=== PATIENT | female | born 1935 ===

== ENCOUNTER 2017-12-04 01:56 | Emergency (ER) | payer MEDICARE ==
[2017-12-04 02:10] VITALS: O2SAT 98
[2017-12-04 02:50] VITALS: BP 160/71; PULSE 17; RESP 18; TEMP 97.8
[2017-12-04] MEDS ORDERED: Tetanus/Diphtheria Toxoids 0.5 ml Syringe IM ONE ×2 (02:51→02:58)
[2017-12-04] MEDS ORDERED: Bacitracin 500 Units/gm Oint Foilpak UD ONE (03:22)
--- NOTE | 2017-12-04 03:37 | C.PDOC ---
History Of Present Illness 82 y/o female presents to the ED for evaluation of laceration sustained tonight. Patient states she accidentally cut her right lower leg on the sharp metal edge at the base of her bedframe. Denies any weakness or numbness. Tetanus is not up to date. Time Seen by Provider: 12/04/17 02:12 Chief Complaint (Nursing): Abnormal Skin Integrity History Per: Patient History/Exam Limitations: no limitations Onset/Duration Of Symptoms: Hrs Current Symptoms Are (Timing): Still Present Past Medical History Reviewed: Historical Data, Nursing Documentation, Vital Signs Vital Signs: Last Vital Signs Temp 97.8 F 12/04/17 02:04 Pulse 17 L 12/04/17 02:48 Resp 18 12/04/17 02:04 BP 160/71 H 12/04/17 02:04 Pulse Ox 98 12/04/17 03:37 - Medical History PMH: HTN, Hyperthyroidism Denies: Chronic Kidney Disease Surgical History: No Surg Hx Family History: States: No Known Family Hx - Social History Hx Alcohol Use: No Hx Substance Use: No - Immunization History Hx Tetanus Toxoid Vaccination: No Hx Influenza Vaccination: No Hx Pneumococcal Vaccination: No Review Of Systems Skin: Positive for: Lesions (to right lower leg) Neurological: Negative for: Weakness, Numbness Physical Exam - Physical Exam Appears: Non-toxic, No Acute Distress Skin: Normal Color, Warm, Dry Head: Atraumatic, Normacephalic Eye(s): bilateral: Normal Inspection, PERRL, EOMI Neck: Normal ROM Chest: Symmetrical Respiratory: No Accessory Muscle Use Extremity: Normal ROM, Capillary Refill (less than 2 sec), No Deformity, No Swelling, Other (4 cm laceration to the distal aspect of right lower extremity; No foreign body or tendon visualization) Pulses: Left Dorsalis Pedis: Normal, Right Dorsalis Pedis: Normal Neurological/Psych: Oriented x3, Normal Speech, Normal Motor, Normal Sensation, Other (No focal deficits) Gait: Steady ED Course And Treatment O2 Sat by Pulse Oximetry: 98 (RA) Pulse Ox Interpretation: Normal Progress Note: Wound irrigated vigorously with 100cc of saline. Sterilized with betadine, laceration repaired with 7 elena. Bacitractin and dressing applied. Tdap booster given in the ED. Patient counseled regarding wound care and the importance of wound check in 2 days. Laceration - Laceration Repair right lower leg Wound Length (In cm): 4 Description Of Wound: Linear Wound Cleansed With: Betadine, Sterile Saline Wound Examination: Irrigated With Saline, No FB With Wound Exploration, No Tendon Injury With Wound Exploration Wound Closure: Elena (x7) Wound Complexity: Simple Disposition Counseled Patient/Family Regarding: Diagnosis, Need For Followup - Disposition Referrals: Junior Luog MD [Staff Provider] - Disposition: HOME/ ROUTINE Disposition Time: 03:35 Condition: STABLE Additional Instructions: Apply bacitracin ointment Wound care in 2 days Follow wound care instructions Staple removal i 10 days Return to ER if worse Instructions: Laceration Repair With [place] (DC) Forms: [employer] (Filipino) - Clinical Impression Clinical Impression: Laceration of leg - PA / ORGANIZATIONAL DEVELOPMENT MANAGER / Resident Statement MD/DO has reviewed & agrees with the documentation as recorded. - Scribe Statement The provider has reviewed the documentation as recorded by the Scribe (Mercy Varela) All medical record entries made by the Scribe were at my direction and personally dictated by me. I have reviewed the chart and agree that the record accurately reflects my personal performance of the history, physical exam, medical decision making, and the department course for this patient. I have also personally directed, reviewed, and agree with the discharge instructions and disposition.
== END 2017-12-04 03:51 | disposition home or self-care (01) ==
LOC: C.ER 01:56
DX: S81.811A Laceration without foreign body, right lower leg, initial encounter (principal); W45.8XXA Other foreign body or object entering through skin, initial encounter; I10 Essential (primary) hypertension; E05.90 Thyrotoxicosis, unspecified without thyrotoxic crisis or storm; Z23 Encounter for immunization

== ENCOUNTER 2018-02-23 12:41 | Emergency (ER) | payer MEDICARE ==
[2018-02-23 12:59] VITALS: BMI 24.7
--- NOTE | 2018-02-23 13:53 | C.PDOC ---
History Of Present Illness 82 y/o female with history of HTN and Hypothyroidism presents to ED for evaluation of allergic reaction since this morning after taking 1 dose of unknown [place] to replace HTN medication because she ran out of it. Patient states she had left over medication from [place] unknown what it was for and developed rash to body associated itchiness. Time Seen by Provider: 02/23/18 13:24 Chief Complaint (Nursing): Allergic Reaction History Per: Patient, Family History/Exam Limitations: no limitations Onset/Duration Of Symptoms: Days Current Symptoms Are (Timing): Still Present Possible Cause: Medication Associated Symptoms: Skin Rash Past Medical History Reviewed: Historical Data, Nursing Documentation, Vital Signs Vital Signs: Last Vital Signs Temp 98.4 F 02/23/18 12:59 Pulse 53 L 02/23/18 12:59 Resp 20 02/23/18 12:59 BP 115/61 02/23/18 12:59 Pulse Ox 97 02/23/18 15:50 - Medical History PMH: HTN, Hyperthyroidism Surgical History: No Surg Hx Family History: States: No Known Family Hx - Social History Hx Alcohol Use: No Hx Substance Use: No - Immunization History Hx Tetanus Toxoid Vaccination: No Hx Influenza Vaccination: No Hx Pneumococcal Vaccination: No Review Of Systems Except As Marked, All Systems Reviewed And Found Negative. Skin: Positive for: Rash Physical Exam - Physical Exam Appears: Non-toxic, No Acute Distress Skin: Warm, Dry, Rash (erythematous macular to arms and legs) Head: Atraumatic, Normacephalic Eye(s): bilateral: Normal Inspection Oral Mucosa: Moist Tongue: Normal Appearing, No Swelling Lips: Normal Appearing, No Swelling Throat: Normal, No Erythema, No Exudate Neck: Supple Cardiovascular: Rhythm Regular Respiratory: Normal Breath Sounds, No Rales, No Rhonchi, No Wheezing Gastrointestinal/Abdominal: Soft, No Tenderness, No Guarding, No Rebound Neurological/Psych: Oriented x3, Normal Speech, Normal Cognition ED Course And Treatment - Laboratory Results Result Diagrams: 02/23/18 14:08 02/23/18 14:08 ECG: Interpreted By Me, Viewed By Me ECG Rhythm: Sinus Rhythm Interpretation Of ECG: Normal intervals, Normal Access. Rate From EC (BPM) O2 Sat by Pulse Oximetry: 97 (RA) Pulse Ox Interpretation: Normal Medical Decision Making Medical Decision Making: Assessment: Allergic reaction secondary to Diclofenac patient states improvement. Advised to stop diclofenac follow up with her doctor within 2 days Disposition - Disposition Referrals: Junior Lugo MD [Staff Provider] - Disposition: HOME/ ROUTINE Disposition Time: 16:00 Condition: STABLE Additional Instructions: follow up with your doctor within 2 days call to make an appointment take medications as prescribed return to ER if symptoms worsens or progress stop diclofenac Prescriptions: Loratadine [Claritin] 10 mg PO DAILY PRN #15 tab PRN Reason: Other predniSONE [predniSONE Tab] 50 mg PO DAILY #4 tab Instructions: Adverse Drug Reactions, Adult (DC) Forms: Gen Discharge Inst Kazakh, [employer] (Kazakh) Print Language: TELUGU - Clinical Impression Clinical Impression: Allergic reaction caused by a drug - Scribe Statement The provider has reviewed the documentation as recorded by the Sharriibjuarez Thompson All medical record entries made by the Sharriibjuarez were at my direction and personally dictated by me. I have reviewed the chart and agree that the record accurately reflects my personal performance of the history, physical exam, medical decision making, and the department course for this patient. I have also personally directed, reviewed, and agree with the discharge instructions and disposition.
[2018-02-23 14:13] LABS: BASO # 0.1 K/uL (0.0-0.2); BASO % 0.8 % (0.0-2.0); EOS % 0.2 % (0.0-4.0); HEMOGLOBIN 14.9 g/dL (11.0-16.0); LYMPH # 1.4 K/uL (1.0-4.3); LYMPH % 11.4 % (20.0-40.0); MEAN CELL VOLUME 87.6 fL (81.0-99.0); MEAN CORPUSCULAR HEMOGLOBIN 29.5 pg (27.0-31.0); MEAN CORPUSCULAR HGB CONC 33.6 g/dL (33.0-37.0); MEAN PLATELET VOLUME 8.1 fL (7.2-11.7); MONO # 0.4 K/uL (0.0-0.8); NEUT # 10.2 K/uL (1.8-7.0); NEUT % 84.6 % (50.0-75.0); RBC 5.04 Mil/uL (3.80-5.20); RED CELL DISTRIBUTION WIDTH 14.6 % (11.5-14.5)
[2018-02-23 14:23] LABS: ALB/GLOB RATIO 1.4 (1.0-2.1); ALBUMIN 4.3 g/dL (3.5-5.0); ALT/SGPT 15 U/L (9-52); AST/SGOT 22 U/L (14-36); BLOOD UREA NITROGEN 20 mg/dL (7-17); GFR NON-AFRICAN AMERICAN > 60
[2018-02-23 14:35] LABS: B-TYPE NATRIURETIC PEPTIDE 202 pg/mL (0-900)
[2018-02-23 14:47] LABS: SQUAMOUS EPITHIAL 2 /hpf (0-5); URINE BACTERIA RARE (<OCC); URINE BILIRUBIN NEGATIVE (NEGATIVE); URINE BLOOD NEGATIVE (NEGATIVE); URINE CLARITY Hazy (Clear); URINE COLOR Yellow (YELLOW); URINE GLUCOSE (UA) NORMAL (Normal); URINE LEUKOCYTE ESTERASE NEG Leu/uL (Negative); URINE PROTEIN 1+ mg/dL (NEGATIVE); URINE UROBILINOGEN NORMAL mg/dL (0.2-1.0)
[2018-02-23 16:15] VITALS: BP 118/58; PULSE 70; RESP 18; TEMP 98.5; O2SAT 99
== END 2018-02-23 16:15 | disposition home or self-care (01) ==
LOC: C.ER 12:41
DX: L27.0 Generalized skin eruption due to drugs and medicaments taken internally (principal); T39.395A Adverse effect of other nonsteroidal anti-inflammatory drugs [NSAID], initial encounter
CPT/HCPCS: 80053; 81001; 83735; 83880; 84443; 84484; 85025; 96374; 96375; 99285; J2930